=== PATIENT | female | born 2005 | race Caucasian/White ===

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

== ENCOUNTER 2024-11-13 12:05 | Emergency (ER) | payer SELFPAY ==
[~2024-11-13] VITALS: Ht 165.1 cm; Wt 68.3 kg
[2024-11-13 12:10] VITALS: BP 138/78; TEMP 97.9; O2SAT 98
[2024-11-13 13:12] LABS: BASO % 0.5 % (0.0-1.0); EOS % 0.5 % (0.0-3.0); LYMPH # 1.5 10^3/uL (1.5-5.0); LYMPH % 17.1 % (24.0-44.0); MEAN CORPUSCULAR HEMOGLOBIN 31.3 pg (27.0-33.0); MEAN CORPUSCULAR HGB CONC 33.3 g/dl (32.0-36.5); MONO # 0.5 10^3/uL (0.0-0.8); MONO % 5.4 % (2.0-8.0); NEUTROPHILS # 6.8 10^3/uL (1.5-8.5); PLATELET COUNT, AUTOMATED 219 10^3/uL (150-450); RED BLOOD COUNT 4.47 10^6/uL (4.00-5.40); WHITE BLOOD COUNT 8.9 10^3/uL (4.0-10.0)
[2024-11-13 13:42] LABS: LIPASE 31 U/L (12-53)
[2024-11-13 13:44] LABS: ALKALINE PHOSPHATASE 74 U/L (35-104); ALT/SGPT 12 U/L (7.0-40); AST/SGOT < 8 U/L (<34); BILIRUBIN,DIRECT 0.1 MG/DL (<0.4); BILIRUBIN,TOTAL 0.4 MG/DL (0.3-1.2); BLOOD UREA NITROGEN 16 MG/DL (9-23); CALCIUM LEVEL 9.9 MG/DL (8.5-10.1); CARBON DIOXIDE LEVEL 24 MMOL/L (20-31); CHLORIDE LEVEL 107 MMOL/L (98-107); CREATININE FOR GFR 0.74 MG/DL (0.55-1.30); GLUCOSE, FASTING 92 MG/DL (60-100); POTASSIUM SERUM 4.6 MMOL/L (3.5-5.1); SODIUM LEVEL 138 MMOL/L (136-145)
[2024-11-13 13:49] LABS: HCG, SERUM QUALITATIVE NEGATIVE (NEGATIVE)
== END 2024-11-13 14:38 | disposition left against medical advice (07) ==
LOC: M ED 12:05
DX: Z53.21 Procedure and treatment not carried out due to patient leaving prior to being seen by health care provider (principal)

== ENCOUNTER 2024-12-28 17:06 | Emergency (ER) | payer OTHER, SELFPAY ==
[~2024-12-28] VITALS: Ht 162.6 cm; Wt 67.8 kg
[2024-12-28 18:11] LABS: KETONE, URINE AUTO RFX 1+ mg/dL (NEGATIVE); LEUKOCYTE ESTERASE UR AUTO RFX 3+ (NEGATIVE); MUCUS, URINE RFX SMALL (NEGATIVE); NITRITE, URINE AUTO RFX NEGATIVE (NEGATIVE); RBC, URINE AUTO RFX 40 /HPF (0-3); SQUAM EPITHELIAL CELL UR AURFX 11 /HPF (0-6); WBC, URINE AUTO RFX TNTC /HPF (0-3)
[2024-12-28 18:21] LABS: HCG, SERUM QUALITATIVE POSITIVE (NEGATIVE)
[2024-12-28 21:08] LABS: HCG, SERUM QUANTITATIVE 203.2 MIU/ML (<4.2)
[2024-12-28 21:09] LABS: ALBUMIN 3.7 G/DL (3.2-5.2); ALKALINE PHOSPHATASE 68 U/L (35-104); ALT/SGPT 22 U/L (7.0-40); AST/SGOT 13 U/L (<34); BILIRUBIN,DIRECT 0.2 MG/DL (<0.4); BILIRUBIN,TOTAL 0.4 MG/DL (0.3-1.2); BLOOD UREA NITROGEN 8 MG/DL (9-23); CALCIUM LEVEL 10.4 MG/DL (8.5-10.1); CARBON DIOXIDE LEVEL 22 MMOL/L (20-31); CHLORIDE LEVEL 104 MMOL/L (98-107); GLUCOSE, FASTING 89 MG/DL (60-100); POTASSIUM SERUM 4.5 MMOL/L (3.5-5.1); SODIUM LEVEL 137 MMOL/L (136-145); TOTAL PROTEIN 7.1 G/DL (5.7-8.2)
[2024-12-28 22:14] LABS: BASO % 0.2 % (0.0-1.0); HEMATOCRIT 39.2 % (36.0-47.0); HEMOGLOBIN 13.4 g/dl (12.0-15.5); LYMPH # 0.8 10^3/uL (1.5-5.0); LYMPH % 9.1 % (24.0-44.0); MEAN CORPUSCULAR HEMOGLOBIN 31.2 pg (27.0-33.0); MEAN CORPUSCULAR HGB CONC 34.2 g/dl (32.0-36.5); MEAN CORPUSCULAR VOLUME 91.2 fl (80.0-96.0); MONO % 11.2 % (2.0-8.0); NEUTROPHILS # 6.9 10^3/uL (1.5-8.5); NEUTROPHILS % 79.2 % (36.0-66.0); PLATELET COUNT, AUTOMATED 208 10^3/uL (150-450); WHITE BLOOD COUNT 8.7 10^3/uL (4.0-10.0)
[2024-12-28] MEDS ORDERED: CEFD300C PO (23:08)
[2024-12-28 23:30] VITALS: BP 128/77; TEMP 98.4; O2SAT 99
[2024-12-28] MEDS: CEPHALEXIN 500 MG CAP PO ONE (23:35)
== END 2024-12-28 23:35 | disposition home or self-care (01) ==
LOC: M ED 17:06
DX: O20.0 Threatened abortion (principal); O23.40 Unspecified infection of urinary tract in pregnancy, unspecified trimester; O99.619 Diseases of the digestive system complicating pregnancy, unspecified trimester; O99.340 Other mental disorders complicating pregnancy, unspecified trimester; O99.330 Smoking (tobacco) complicating pregnancy, unspecified trimester; O99.320 Drug use complicating pregnancy, unspecified trimester

== ENCOUNTER → 2025-01-28 | Outpatient (CLI) | payer OTHER ==
[~2025-01-28] MED LIST changes: +CEFD300C PO
== END ==
LOC: M PLALAB 10:54
PROVIDERS: ATTEND Advanced Practice Midwife
DX: O03.9 Complete or unspecified spontaneous abortion without complication (principal)

== ENCOUNTER 2025-02-21 22:50 | Emergency (ER) | payer OTHER ==
[~2025-02-21] VITALS: Ht 162.6 cm; Wt 68.2 kg
[2025-02-22 01:01] VITALS: BP 131/63; TEMP 98; O2SAT 100
== END 2025-02-22 01:48 | disposition home or self-care (01) ==
LOC: M ED 22:50
DX: F43.0 Acute stress reaction (principal); F32.A Depression, unspecified; F91.3 Oppositional defiant disorder

== ENCOUNTER 2025-05-24 15:32 | Day surgery (SDC) | payer OTHER ==
[~2025-05-24] VITALS: Ht 162.6 cm; Wt 68.3 kg
[~2025-05-24 15:32] MED LIST changes: +CETI-24 PO; +LEXA1TAB2 PO; +LR 1,000 ML IV SCH; +ceFAZolin SOD 2 GM IV ONCE IV ONE
[2025-05-24] MEDS ORDERED: SUGAMMADEX SODIUM 500 MG/5 ML VIAL As Ordered ONE (17:11)
[2025-05-24] MEDS ORDERED: ROCURONIUM BROMIDE 50MG/5ML VIAL As Ordered ONE (18:17)
[2025-05-24] MEDS ORDERED: LIDOCAINE 2% 100 MG/5 ML SDV (FOR ANES.) As Ordered ONE (18:17)
[2025-05-24] MEDS ORDERED: dexAMETHasone 4 MG/ML 1 ML VIAL As Ordered ONE (18:17)
[2025-05-24] MEDS ORDERED: KETOROLAC 30 MG/ML 1 ML VIAL As Ordered ONE (18:17)
[2025-05-24] MEDS ORDERED: dexmedeTOMIDine (4 MCG/ML) 200 MCG/50 ML BTL As Ordered ONE (18:17)
[2025-05-24] MEDS ORDERED: MIDAZOLAM INJ 2 MG/2 ML VIAL As Ordered ONE (18:17)
[2025-05-24] MEDS ORDERED: INDOCYANINE GREEN 25 MG VIAL As Ordered ONE (18:17)
[2025-05-24] MEDS ORDERED: ONDANSETRON 4MG 2ML VIAL As Ordered ONE (18:17)
[2025-05-24] MEDS ORDERED: ACETAMINOPHEN 1000MG/100ML IV BAG As Ordered ONE (19:01)
[2025-05-24] MEDS: HEPARIN SOD 5000 UNITS/ML 1 ML VIAL/SYRINGE SQ ONE (19:14)
[2025-05-24] MEDS ORDERED: LR 1,000 ML IV SCH (20:25)
[2025-05-24] MEDS ORDERED: HYDROMORPHONE HCL 0.5 MG/0.5 ML SYRINGE IV PRN (20:25)
[2025-05-24] MEDS ORDERED: ONDANSETRON 4MG 2ML VIAL IV PRN (20:25)
[2025-05-24 21:30] VITALS: BP 110/67; TEMP 97.6; O2SAT 99
== END 2025-05-24 21:58 | disposition home or self-care (01) ==
LOC: M SDC 15:32
PROVIDERS: ATTEND Surgery
DX: K80.20 Calculus of gallbladder without cholecystitis without obstruction (principal); J30.2 Other seasonal allergic rhinitis; F17.290 Nicotine dependence, other tobacco product, uncomplicated; Z79.899 Other long term (current) drug therapy
CPT/HCPCS: 47562; 81025; 88304; J0131; J0665; J1100; J1885; J2250; J2405; J2765; J3010; Q9968; S2900

== ENCOUNTER 2025-05-31 02:39 | Emergency (ER) | payer OTHER ==
[~2025-05-31] VITALS: Ht 162.6 cm; Wt 63.6 kg
[~2025-05-31 02:39] MED LIST changes: -LR 1,000 ML IV SCH; -ceFAZolin SOD 2 GM IV ONCE IV ONE
[2025-05-31 02:45] VITALS: BP 129/61; TEMP 98.3; O2SAT 98
[2025-05-31 03:08] LABS: PLATELET COUNT, AUTOMATED 243 10^3/uL (150-450)
[2025-05-31 03:39] LABS: ETHYL ALCOHOL (ETHANOL) < 0.003 % (0.000-0.010)
[2025-05-31 03:41] LABS: ALT/SGPT 15 U/L (7.0-40); AMPHETAMINES LEVEL URINE NEGATIVE (NEGATIVE); AST/SGOT 14 U/L (<34); BARBITURATES URINE NEGATIVE (NEGATIVE); BENZODIAZEPINES URINE NEGATIVE (NEGATIVE); CALCIUM LEVEL 10.2 MG/DL (8.5-10.1); CARBON DIOXIDE LEVEL 24 MMOL/L (20-31); CHLORIDE LEVEL 108 MMOL/L (98-107); COCAINE METABOLITE URINE NEGATIVE (NEGATIVE); CREATININE FOR GFR 0.76 MG/DL (0.55-1.30); GLOMERULAR FILTRATION RATE > 90.0 (>60); METHADONE URINE NEGATIVE (NEGATIVE); PHENCYCLIDINE URINE NEGATIVE (NEGATIVE); POTASSIUM SERUM 4.3 MMOL/L (3.5-5.1); SALICYLATE LEVEL < 3.0 MG/DL (<30); SODIUM LEVEL 143 MMOL/L (136-145)
[2025-05-31 03:47] LABS: CANNABINOIDS URINE POSITIVE (NEGATIVE); OPIATES URINE POSITIVE (NEGATIVE)
[2025-05-31 04:10] LABS: HCG, SERUM QUALITATIVE NEGATIVE (NEGATIVE)
[2025-05-31] MEDS: ACETAMINOPHEN 325 MG TAB PO ONE (06:09)
== END 2025-05-31 06:36 | disposition home or self-care (01) ==
LOC: M ED 02:39
DX: F43.0 Acute stress reaction (principal); F17.290 Nicotine dependence, other tobacco product, uncomplicated